=== PATIENT | female | born 1990 | race Caucasian/White ===

== ENCOUNTER 2025-05-27 07:40 | Emergency (ER) | payer OTHER ==
[~2025-05-27] VITALS: Ht 152.4 cm; Wt 63.0 kg
[2025-05-27 07:48] VITALS: BP 108/95; PULSE 103; RESP 18; TEMP 98.2; O2SAT 99
== END 2025-05-27 09:45 | disposition home or self-care (01) ==
LOC: EMS 07:40
DX: S69.92XA Unspecified injury of left wrist, hand and finger(s), initial encounter (principal); Z90.49 Acquired absence of other specified parts of digestive tract; Z98.890 Other specified postprocedural states; Z88.6 Allergy status to analgesic agent; X50.9XXA Other and unspecified overexertion or strenuous movements or postures, initial encounter; Y93.89 Activity, other specified; Y92.89 Other specified places as the place of occurrence of the external cause; Y99.0 Civilian activity done for income or pay
CPT/HCPCS: 99283